=== PATIENT | male | born 1980 | race Hispanic/Latino ===

== ENCOUNTER 2018-11-13 03:07 | Emergency (ER) | payer OTHER ==
[2018-11-13 03:40] LABS: APPEARANCE,URINE Clear (CLEAR); BILIRUBIN,URINE Negative (NEGATIVE); COLOR,URINE Yellow (YELLOW); GLUCOSE, URINE (UA) Negative (NEGATIVE); KETONES,URINE Trace mg/dL (NEGATIVE); LEUKOCYTE ESTERASE ,URINE Trace (NEGATIVE); NITRATE,URINE Negative (NEGATIVE); OCCULT BLOOD,URINE Negative (NEGATIVE); PROTEIN,URINE POS 1+ mg/dL (NEGATIVE)
[2018-11-13 03:49] LABS: AMPHET/METH SCREEN,URINE NEGATIVE (NEGATIVE); BARBITURATE SCREEN, URINE NEGATIVE (NEGATIVE); BENZODIAZEPINES SCREEN,URINE NEGATIVE (NEGATIVE); CANNABINOID SCREEN,URINE POSITIVE (NEGATIVE); COCAINE SCREEN,URINE POSITIVE (NEGATIVE); OPIATE SCREEN,URINE NEGATIVE (NEGATIVE); PHENCYCLIDINE SCREEN,URINE NEGATIVE (NEGATIVE)
[2018-11-13 03:53] LABS: BACTERIA,URINE Few /HPF (None Seen); MUCUS,URINE Few LPF (None Seen); RBC,URINE 0-1 /HPF (0-1)
== END 2018-11-13 03:58 | disposition home or self-care (01) ==
LOC: EDH 03:07
DX: S39.012A Strain of muscle, fascia and tendon of lower back, initial encounter (principal); R19.7 Diarrhea, unspecified; F14.10 Cocaine abuse, uncomplicated; R11.10 Vomiting, unspecified; I10 Essential (primary) hypertension; Z72.0 Tobacco use; X58.XXXA Exposure to other specified factors, initial encounter; Y93.89 Activity, other specified; Y92.89 Other specified places as the place of occurrence of the external cause; Y99.8 Other external cause status
CPT/HCPCS: 80305; 81001

== ENCOUNTER 2020-03-25 21:48 | Emergency (ER) | payer OTHER ==
[2020-03-25] MEDS ORDERED: AZITHROMYCIN 250 MG TABLET PO ONE (22:29)
[2020-03-25] MEDS ORDERED: GUAIFENESIN SUGAR-FREE 100 MG/5 ML UDCUP ONE (22:29)
== END 2020-03-25 23:22 ==
LOC: EDH 21:48
DX: B34.9 Viral infection, unspecified (principal); Z20.828 Contact with and (suspected) exposure to other viral communicable diseases; I10 Essential (primary) hypertension; Z72.0 Tobacco use
CPT/HCPCS: 71045; 87426; 99284; U0003